=== PATIENT | male | born 1960 | race Caucasian/White ===

== ENCOUNTER 2017-06-01 15:52 | Emergency (ER) | payer OTHER ==
[~2017-06-01] VITALS: Ht 170.2 cm; Wt 53.8 kg
[~2017-06-01 15:52] MED LIST: CIPROFLOXACIN H10 ML BOTH EYES; COLACE100 MG PO; DAILY VITE1 EAC1; DIASTAT ACUDIAL10 MG PR; ENULOSE10 GM/15 M PO; LAMICTAL150 M1; MAGNESIUM HYDROXIDE; MUCINEX600 MG PO; SENNA LAX8.6 MG PO; SENNA LAXATIVE1 EACH; SYNTHROID50 MCG; TEGRETOL200 MG PO; nasal spray
[2017-06-01 18:06] LABS: HEMATOCRIT 33.5 % (38.0-50.0); HEMOGLOBIN 11.4 G/DL (12.5-16.6); MCH 31.1 PG (29.0-34.0); MCV 91.5 FL (86-99); PLATELET COUNT 171 K/uL (156-360); RBC DIS.WIDTH-CV 14.4 % (11.8-14.6); RBC DIS.WIDTH-SD 49.1 % (39-53); RED BLOOD COUNT 3.66 M/uL (4.00-5.50); WHITE BLOOD COUNT 6.3 K/uL (4.1-10.2)
[2017-06-01 18:21] LABS: CHLORIDE 100 mEq/L (99-109); POTASSIUM 4.1 mEq/L (3.7-5.4); SODIUM 132 mEq/L (136-147)
[2017-06-01 18:23] LABS: GLUCOSE 103 mg/dL (70-99)
[2017-06-01 18:27] LABS: CREATININE 0.7 mg/dL (0.6-1.3); GFR ESTIMATE (CALCULATED) > 59 mL/min/ (58.99-99999)
[2017-06-01 18:28] LABS: UREA NITROGEN (BUN) 11 mg/dL (9-23)
[2017-06-01] MEDS ORDERED: CLINDAMYCIN HC150 MG PO (19:15)
[2017-06-01] MEDS ORDERED: AMOXICILLIN500 M1 PO (19:15)
[2017-06-01 21:45] VITALS: BP 164/92
== END 2017-06-01 20:45 | disposition home or self-care (01) ==
LOC: EME 15:52
PROVIDERS: Physician Assistant
DX: K04.7 Periapical abscess without sinus (principal); R56.9 Unspecified convulsions; F79 Unspecified intellectual disabilities; Z85.46 Personal history of malignant neoplasm of prostate
CPT/HCPCS: 70486; 80048; 84484; 85027; 99281; 99285; J0295; J2060